=== PATIENT | male | born 1990 | race Caucasian/White ===

== ENCOUNTER 2018-05-07 18:28 | Emergency (ER) | payer SELFPAY ==
[2018-05-07 18:41] VITALS: BP 115/67
--- NOTE | 2018-05-07 18:48 | UC ---
Skin Complaint HPI - HPI Summary HPI Summary: 27 yo male presents with right elbow pain and swelling that started 2-3 days ago. He tells me that he thinks he was bit or stung by a bug on his elbow. Was a little red, swollen, and tender. This morning he tried to squeeze it and drain fluid from the puncture site - throughout the course of today has increased in swelling and redness. Denies fever, chills, SOB, chest pain, n/v. - History of Current Complaint Chief Complaint: UCSkin Time Seen by Provider: 05/07/18 18:48 Stated Complaint: BUG BITE ELBOW Hx Obtained From: Patient Onset/Duration: Gradual Onset Onset Severity: Mild Current Severity: Moderate Pain Intensity: 5 Pain Scale Used: 0-10 Numeric - Allergy/Home Medications Allergies/Adverse Reactions: Allergies Allergy/AdvReac Type Severity Reaction Status Date / Time Penicillins Allergy Unknown Verified 05/07/18 18:41 Reaction Details Review of Systems Constitutional: Negative Skin: Other - Red swollen right elbow Respiratory: Negative Cardiovascular: Negative Gastrointestinal: Negative Neurovascular: Negative Musculoskeletal: Other: - Right swollen right elbow Neurological: Negative Psychological: Negative All Other Systems Reviewed And Are Negative: Yes PMH/Surg Hx/FS Hx/Imm Hx - Additional Past Medical History Additional PMH: None Previously Healthy: Yes - Surgical History Surgical History: Yes Surgery Procedure, Year, and Place: front teeth implanted - Family History Known Family History: Positive: None - Social History Lives: With Family Alcohol Use: None Substance Use Type: None Smoking Status (MU): Never Smoked Tobacco Physical Exam - Summary Physical Exam Summary: GENERAL: NAD. WDWN. No pain distress. SKIN: Moderate erythema and edema about right elbow extending down to the proximal 1/3 of the right forearm. Mild TTP. Mild warmth. At the right elbow there is 1mm puncture wound consistent with possible insect sting/bite. No active drainage. No streaking. NECK: Supple. Nontender. No lymphadenopathy. CHEST: No accessory muscle use. Breathing comfortably and in no distress. CV: RRR. Without m/r/g. Pulses intact radial and ulnar. MSK: Right elbow: Mild TTP. Mild decreased flexion due to edema. 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 NEURO: Alert. Sensations intact hand and all fingers. PSYCH: Age appropriate behavior. Triage Information Reviewed: Yes Vital Signs: Initial Vital Signs Temp 99.8 F 05/07/18 18:38 Pulse 65 05/07/18 18:38 Resp 18 05/07/18 18:38 BP 115/67 05/07/18 18:38 Pulse Ox 100 05/07/18 18:38 Course/Dx - Course Course Of Treatment: Scant purulent matter was able to be expressed from the puncture site at the right elbow and a culture was obtained. The pt was given 1gm of ceftriaxone in the clinic and sent with an rx for Bactrim. I advised him that he needs close follow up as I suspect this is cellulitis vs abscess vs septic bursitis - therefore I am referring him to Orthopedics with instructions to call first thing Thursday morning for an appointment. If pain, swelling, or redness increased to return to UC or go to ED and do not wait. - Diagnoses Provider Diagnoses: Cellulitis right elbow. Insect bite/sting right elbow Discharge - Sign-Out/Discharge Documenting (check all that apply): Discharge/Admit/Transfer - Discharge Plan Condition: Stable Disposition: HOME Prescriptions: Sulfamethox/Trimethoprim DS* [Bactrim DS 800/160 TAB*] 1 tab PO BID #20 tab Patient Education Materials: Cellulitis (DC), Elbow Bursitis (ED) Referrals: No Primary Care Phys,NOPCP [Primary Care Provider] - Luis Armando Em MD [Medical Doctor] - As Soon As Possible Additional Instructions: If you develop a fever, shortness of breath, chest pain, new or worsening symptoms - please call your PCP or go to the ED. 1) If you notice increase pain, swelling, or redness - please return or go to the ER 2) Please call Orthopedics at the number below as soon as possible to schedule a follow up visit. - Billing Disposition and Condition Condition: STABLE Disposition: Home
[2018-05-07] MEDS ORDERED: Lidocaine 1% MPF* 2 ML VIAL INJ ONE (19:02)
[2018-05-07] MEDS ORDERED: cefTRIAXone VIAL(*) 1,000 MG VIAL IM ONE (19:02)
[2018-05-07] MEDS ORDERED: Lidocaine 1%* 5 ML VIAL INJ ONE (19:07)
--- NOTE | 2018-05-09 08:18 | UC ---
- Progress Note Progress Note: Progress note: Patient seen here 2 days ago with cellulitis of the elbow. It started on Septra. Culture results return positive for MRSA and staph aureus. Although the patient is on the appropriate antibiotic, please call to double check that he is improving and that he will follow-up with orthopedics. Kenny Zavala M.D. Discharge - Sign-Out/Discharge Documenting (check all that apply): Post-Discharge Follow Up - Discharge Plan Condition: Stable Disposition: HOME Prescriptions: Sulfamethox/Trimethoprim DS* [Bactrim DS 800/160 TAB*] 1 tab PO BID #20 tab Patient Education Materials: Cellulitis (DC), Elbow Bursitis (ED) Referrals: Luis Armando Em MD [Medical Doctor] - As Soon As Possible No Primary Care Phys,NOPCP [Primary Care Provider] - Additional Instructions: If you develop a fever, shortness of breath, chest pain, new or worsening symptoms - please call your PCP or go to the ED. 1) If you notice increase pain, swelling, or redness - please return or go to the ER 2) Please call Orthopedics at the number below as soon as possible to schedule a follow up visit. - Billing Disposition and Condition Condition: STABLE Disposition: Home
== END 2018-05-07 19:41 | disposition home or self-care (01) ==
LOC: UCEAST 18:28
DX: L03.113 Cellulitis of right upper limb (principal); B95.62 Methicillin resistant Staphylococcus aureus infection as the cause of diseases classified elsewhere; Z88.0 Allergy status to penicillin
CPT/HCPCS: 87070; 87077; 87186; 87205; 87640; 87641; 96372; 99202; G0463; J0696

== ENCOUNTER 2018-05-08 09:40 | Inpatient (IN) | payer SELFPAY ==
[2018-05-08] MEDS ORDERED: Clindamycin 600 MG IVPREMIX(* 600 MG/50 ML SDV IV ONE (10:27)
[2018-05-08 10:49] LABS: ABS Basophils 0.1 10^3/ul (0-0.2); ABS Eosinophils 0.3 10^3/ul (0-0.6); ABS Lymphocytes 1.8 10^3/ul (1.0-4.8); ABS Monocytes 1.5 10^3/ul (0-0.8); ABS Neutrophils 8.3 10^3/ul (1.5-7.7); ABS Nucleated RBC 0 10^3/ul; Eosinophil % 2.4 % (0-6); Hematocrit 44 % (42-52); Hemoglobin 15.2 g/dl (14.0-18.0); Lymphocyte % 15.3 % (25-47); Mean Corpuscular HGB Conc 34 g/dl (31-36); Mean Corpuscular Hemoglobin 32 pg (27-31); Mean Corpuscular Volume 92 fL (80-94); Mean Platelet Volume 6.8 um3 (7.4-10.4); Nucleated Red Blood Cells % 0; Platelet Count 257 10^3/ul (150-450); Red Blood Count 4.79 10^6/ul (4.0-5.4); Red Cell Distribution Width 12 % (10.5-15)
[2018-05-08 10:58] LABS: INR 1.02 (0.77-1.02)
[2018-05-08 11:06] LABS: EGFR Non-African American 88.3 (>60)
--- NOTE | 2018-05-08 12:02 | RAD ---
INDICATION: Pain and erythema around the right elbow x2 days without a history of trauma COMPARISON: None. TECHNIQUE: 4 views right elbow. REPORT: There is appearance of subcutaneous infiltration overlying the skin posterior to the distal humerus depicted best on the lateral view images. A similar appearance is seen along the medial margin of the subcutaneous tissue overlying the distal right humerus. The visualized bones of the right elbow are well corticated and properly aligned. There is no radiographically apparent fracture or dislocation. There is no radiographic evidence of pathologic joint effusion. IMPRESSION: Radiographic appearance is consistent with infiltration of the subcutaneous tissue without underlying bony abnormality or elbow joint effusion.
--- NOTE | 2018-05-08 12:30 | ED ---
Juanita Marion Julia, scribed for Talat Patterson MD on 05/08/18 at 1025 . Upper Extremity Pain - HPI Summary HPI Summary: This patient is a 27 year old M presenting to [facility] with a chief complaint of worsening swelling, pain and erythema of the right elbow beginning two days ago. Patient reports significant worsening yesterday when he was seen at and given a Rocephin IM and a prescription for Bactrim. Symptoms worsened last night with unmeasured fever and chills. Current pain is 6/10. - History of Current Complaint Chief Complaint: EDExtremityUpper Stated Complaint: RT ELBOW SWELLING Time Seen by Provider: 05/08/18 10:19 Hx Obtained From: Patient Mechanism Of Injury: Unknown Onset/Duration: Started Days Ago, Worse Since - yesterday Severity Initially: Mild Severity Currently: Moderate Pain Location: Elbow - right Aggravating Factor(s): Movement Alleviating Factor(s): Nothing Associated Signs & Symptoms: Positive: Swelling, Redness, Fever - Allergies/Home Medications Allergies/Adverse Reactions: Allergies Allergy/AdvReac Type Severity Reaction Status Date / Time Penicillins Allergy Unknown Verified 05/07/18 18:41 Reaction Details PMH/Surg Hx/FS Hx/Imm Hx Cardiovascular History: Denies: Hx Hypertension Respiratory History: Denies: Hx Chronic Obstructive Pulmonary Disease (COPD) History: Denies: Hx Acute Renal Failure - Surgical History Surgery Procedure, Year, and Place: front teeth implanted Infectious Disease History: No Infectious Disease History: Denies: Traveled Outside the [place] in Last 30 Days - Family History Known Family History: Positive: Hypertension - Social History Alcohol Use: None Substance Use Type: Reports: None Smoking Status (MU): Never Smoked Tobacco Review of Systems Positive: Myalgia, Decreased ROM, Edema Positive: Other - erythema All Other Systems Reviewed And Are Negative: Yes Physical Exam - Summary Physical Exam Summary: VITAL SIGNS: Reviewed. GENERAL: Patient is a well-developed and nourished male who is lying comfortable in the stretcher. Patient is not in any acute respiratory distress. HEAD AND FACE: No signs of trauma. No ecchymosis, hematomas or skull depressions. No sinus tenderness. EYES: PERRLA, EOMI x 2, No injected conjunctiva, no nystagmus. EARS: Hearing grossly intact. Ear canals and tympanic membranes are within normal limits. MOUTH: Oropharynx within normal limits. NECK: Supple, trachea is midline, no adenopathy, no JVD, no carotid bruit, no c- spine tenderness, neck with full ROM. CHEST: Symmetric, no tenderness at palpation LUNGS: Clear to auscultation bilaterally. No wheezing or crackles. CVS: Regular rate and rhythm, S1 and S2 present, no murmurs or gallops appreciated. ABDOMEN: Soft, non-tender. No signs of distention. No rebound no guarding, and no masses palpated. Bowel sounds are normal. EXTREMITIES: no cyanosis or clubbing. R elbow swelling and erythema with decreased ROM and tenderness. Elbow appears more indurated than abscess at this point NEURO: Alert and oriented x 3. No acute neurological deficits. Speech is normal and follows commands. SKIN: Dry and warm Triage Information Reviewed: Yes Vital Signs On Initial Exam: Initial Vitals Temp Pulse Resp BP Pulse Ox 97.7 F 85 16 119/65 100 05/08/18 09:49 05/08/18 09:49 05/08/18 09:49 05/08/18 09:49 05/08/18 09:49 Vital Signs Reviewed: Yes Diagnostics - Vital Signs Vital Signs Temp Pulse Resp BP Pulse Ox 05/08/18 09:49 97.7 F 85 16 119/65 100 - Laboratory Lab Results: Lab Results 05/08/18 05/08/18 05/08/18 Range/Units 10:40 10:40 10:40 WBC 12.0 H (3.5-10.8) 10^3/ul RBC 4.79 (4.0-5.4) 10^6/ul Hgb 15.2 (14.0-18.0) g/dl Hct 44 (42-52) % MCV 92 (80-94) fL MCH 32 H (27-31) pg MCHC 34 (31-36) g/dl RDW 12 (10.5-15) % Plt Count 257 (150-450) 10^3/ul MPV 6.8 L (7.4-10.4) um3 Neut % (Auto) 69.4 (38-83) % Lymph % (Auto) 15.3 L (25-47) % Pinal % (Auto) 12.3 H (0-7) % Eos % (Auto) 2.4 (0-6) % Baso % (Auto) 0.6 (0-2) % Absolute Neuts (auto) 8.3 H (1.5-7.7) 10^3/ul Absolute Lymphs (auto) 1.8 (1.0-4.8) 10^3/ul Absolute Monos (auto) 1.5 H (0-0.8) 10^3/ul Absolute Eos (auto) 0.3 (0-0.6) 10^3/ul Absolute Basos (auto) 0.1 (0-0.2) 10^3/ul Absolute Nucleated RBC 0 10^3/ul Nucleated RBC % 0 ESR 21 H (0-14) mm/Hr INR (Anticoag Therapy) 1.02 (0.77-1.02) APTT 32.3 (26.0-36.3) seconds Sodium 139 (139-145) mmol/L Potassium 4.1 (3.5-5.0) mmol/L Chloride 103 (101-111) mmol/L Carbon Dioxide 31 (22-32) mmol/L Anion Gap 5 (2-11) mmol/L BUN 13 (6-24) mg/dL Creatinine 1.02 (0.67-1.17) mg/dL Est GFR ( Amer) 113.5 (>60) Est GFR (Non-Af Amer) 88.3 (>60) BUN/Creatinine Ratio 12.7 (8-20) Glucose 93 (70-100) mg/dL Lactic Acid (0.5-2.0) mmol/L Calcium 9.7 (8.6-10.3) mg/dL Total Bilirubin 0.90 (0.2-1.0) mg/dL AST 23 (13-39) U/L ALT 15 (7-52) U/L Alkaline Phosphatase 61 (34-104) U/L C-Reactive Protein 31.15 H (< 5.00) mg/L Total Protein 7.6 (6.4-8.9) g/dL Albumin 4.4 (3.2-5.2) g/dL Globulin 3.2 (2-4) g/dL Albumin/Globulin Ratio 1.4 (1-3) /08/17 Range/Units 10:40 WBC (3.5-10.8) 10^3/ul RBC (4.0-5.4) 10^6/ul Hgb (14.0-18.0) g/dl Hct (42-52) % MCV (80-94) fL MCH (27-31) pg MCHC (31-36) g/dl RDW (10.5-15) % Plt Count (150-450) 10^3/ul MPV (7.4-10.4) um3 Neut % (Auto) (38-83) % Lymph % (Auto) (25-47) % Pinal % (Auto) (0-7) % Eos % (Auto) (0-6) % Baso % (Auto) (0-2) % Absolute Neuts (auto) (1.5-7.7) 10^3/ul Absolute Lymphs (auto) (1.0-4.8) 10^3/ul Absolute Monos (auto) (0-0.8) 10^3/ul Absolute Eos (auto) (0-0.6) 10^3/ul Absolute Basos (auto) (0-0.2) 10^3/ul Absolute Nucleated RBC 10^3/ul Nucleated RBC % ESR (0-14) mm/Hr INR (Anticoag Therapy) (0.77-1.02) APTT (26.0-36.3) seconds Sodium (139-145) mmol/L Potassium (3.5-5.0) mmol/L Chloride (101-111) mmol/L Carbon Dioxide (22-32) mmol/L Anion Gap (2-11) mmol/L BUN (6-24) mg/dL Creatinine (0.67-1.17) mg/dL Est GFR ( Amer) (>60) Est GFR (Non-Af Amer) (>60) BUN/Creatinine Ratio (8-20) Glucose (70-100) mg/dL Lactic Acid 0.7 (0.5-2.0) mmol/L Calcium (8.6-10.3) mg/dL Total Bilirubin (0.2-1.0) mg/dL AST (13-39) U/L ALT (7-52) U/L Alkaline Phosphatase (34-104) U/L C-Reactive Protein (< 5.00) mg/L Total Protein (6.4-8.9) g/dL Albumin (3.2-5.2) g/dL Globulin (2-4) g/dL Albumin/Globulin Ratio (1-3) Result Diagrams: 05/08/18 10:40 05/08/18 10:40 Lab Statement: Any lab studies that have been ordered have been reviewed, and results considered in the medical decision making process. - Radiology R Elbow XR Radiology Interpretation Completed By: Radiologist - Radiographic appearance is consistent with infiltration of the subcutaneous tissue without underlying bony abnormality or elbow joint effusion. ED Physician has reviewed this report. Course/Dx - Course Assessment/Plan: Blood test result shows a white blood cell count of 12 without any bandemia. CRP is 31.15. X-ray of the right elbow impression: Radiographic advances consistent with infiltration of the subcutaneous tissue without underlying bony abnormality or abnormal joint effusion. The patient reports that he is allergic to penicillin and therefore the patient will be replaced and clindamycin. I discuss my physical exam, findings and test results with Dr. Alcala from the hospitalist services and he agrees to admit patient to his services. Patient is hemodynamically stable alert and oriented x 3. - Diagnoses Differential Diagnosis/HQI/PQRI: Positive: Arthritis, Bursitis, Fracture (Closed ), Strain, Sprain, Other - Cellulitis Provider Diagnoses: Cellulitis Discharge - Sign-Out/Discharge Documenting (check all that apply): Discharge/Admit/Transfer - Discharge Plan Condition: Stable Disposition: ADMITTED TO [facility] Referrals: No Primary Care Phys,NOPCP [Primary Care Provider] - - Billing Disposition and Condition Condition: STABLE Disposition: Admitted to [facility] The documentation as recorded by the Juanita mayberry Julia accurately reflects the service I personally performed and the decisions made by me, Talat Patterson MD.
[2018-05-08] MEDS ORDERED: Vancomycin(*) 2,000 MG in NS 0.9% 500 ML* 500 ML IVPB ONE (12:47)
[2018-05-08] MEDS ORDERED: Iohexol 300* (CONTRAST) 10 ML SDV IV SCH (12:59)
[2018-05-08] MEDS ORDERED: Vancomycin per Pharmacy* NOTE FOLLOW UP SCH (13:00)
--- NOTE | 2018-05-08 13:48 | RAD ---
INDICATION: Right elbow cellulitis COMPARISON: Same day right ankle radiograph. TECHNIQUE: Noncontrast CT examination of the 100 mL Omnipaque 300. Axial images were acquired and sagittal and coronal reformats were created and independently analyzed. FINDINGS: Patient positioning limits the diagnostic quality of the images. There is infiltration of the subcutaneous tissue overlying the distal left humerus, elbow and proximal left forearm. There is no drainable fluid collection. There is no pathologic fluid collection in the right elbow. IMPRESSION: Limited quality imaging of the right elbow is most consistent with superficial cellulitis without drainable fluid collection or drainable right elbow effusion.
--- NOTE | 2018-05-08 14:13 | HP ---
HISTORY AND PHYSICAL: DATE OF ADMISSION: 05/08/18 PRIMARY CARE PROVIDER: None. ATTENDING PHYSICIAN: Dr. Va Alcala * (dictated by Aurelia Zhou , MARIELLA). CHIEF COMPLAINT: Right elbow pain and swelling. HISTORY OF PRESENT ILLNESS: Mr. Márquez is a 27-year-old male with no significant past medical history, who initially presented yesterday on 05/07 to urgent care with complaints of right elbow pain and swelling for approximately 2 days that was worse yesterday. He received IM Rocephin and was started on Bactrim. He took the first dose of Bactrim this morning. The patient reports that overnight he had subjective fevers and intermittent chills. He denies any chest pain, cough, shortness of breath, diarrhea, or abdominal pain. He feels that the swelling has increased today. He has pain with movement and palpation of the arm. Due to this, he presented to the emergency room for further evaluation. While in the emergency room, the patient was noted to have erythema of his biceps and partially down his forearm with a significant amount of swelling in his right elbow with erythema and warmth. He received a dose of IV clindamycin. He had labs that were fairly unremarkable. He had a white blood cell count of 12, an ESR of 21, and a CRP of 31. He had an elbow x-ray showing consistency with an infiltration of the subcutaneous tissue without underlying abnormalities or joint effusion, and the hospitalists were asked to evaluate the patient for admission. PAST MEDICAL HISTORY: None. PAST SURGICAL HISTORY: Front teeth implants. HOME MEDICATIONS: Bactrim DS 1 tablet oral twice daily. ALLERGIES: PENICILLIN. FAMILY HISTORY: Denies any family history of coronary artery disease, diabetes mellitus, or cancer. SOCIAL HISTORY: He denies tobacco, alcohol, or recreational drug use. His girlfriend, Olivia, will be his surrogate decision maker in the event he is unable to make decisions for himself. REVIEW OF SYSTEMS: I performed an 11-point review of systems. All the pertinent positives and negatives are mentioned in the history of present illness. The remaining review of systems are negative. PHYSICAL EXAMINATION GENERAL APPEARANCE: The patient is alert, pleasant, appears to be in no acute distress. VITAL SIGNS: Temperature 99.6, heart rate 85, respiratory rate 16, O2 sat 100% on room air, blood pressure 126/62. HEENT: Normocephalic, atraumatic. Pupils are equal and reactive to light. Extraocular movements are intact. RESPIRATORY: There is no accessory muscle use. The lungs are clear to auscultation bilaterally. CARDIOVASCULAR: Regular rate and rhythm. S1, S2 present. There are no murmurs , rubs, or gallops heard. ABDOMEN: Soft, nontender, nondistended. Bowel sounds are present x4. EXTREMITIES: There is no lower extremity edema. DP and PT pulses are 2+ and symmetric. MUSCULOSKELETAL: There is no clubbing or cyanosis noted. The patient exhibits good strength in all extremities. The patient's right elbow has full range of motion, but pain with this. He has tenderness to palpation to his elbow. He has edema to his right elbow and slight erythema extending up to his biceps and into his forearm with more significant erythema located around the elbow. NEUROLOGICAL: The patient is alert and oriented x4. Cranial nerves II through XII are grossly intact. PSYCHOLOGICAL: The patient is calm and cooperative. SKIN: The patient has erythema as described above to the right elbow in addition to a small scabbed area of eschar on the right elbow. DIAGNOSTIC STUDIES/LABORATORY DATA: Sodium 139, potassium 4.1, chloride 103, CO2 of 31, BUN 13, creatinine 1.02, glucose 93. White blood cell count 12.0, hemoglobin 15.2, hematocrit 44, platelet count 257. CRP 31, ESR 21. Elbow x-ray from today. Radiologist's impression: Radiographic appearance is consistent with infiltration of the subcu tissue without underlying bony abnormality or elbow joint effusion. IMPRESSION: Mr. Márquez is a 27-year-old male with no significant past medical history, who presents to the emergency room with complaints of 3 to 5 days of right elbow swelling and redness that has worsened. He will be admitted as an observation for right elbow cellulitis. ASSESSMENT/PLAN: 1. Right elbow cellulitis. The patient has mild leukocytosis. At this time, he is afebrile. His CRP and ESR are not significantly elevated. There is currently no drainage from the wound. I believe this was cultured at urgent care, but there are no results back yet. The patient has taken 1 dose of Bactrim after receiving IM Rocephin last evening. He has received IV clindamycin in the emergency room. I will place him on vancomycin. I do not feel this is an outpatient antibiotic failure as he has only taken 1 dose of Bactrim. He will likely be able to be discharged home back on Bactrim in the morning. I am going to get an elbow CT just to further eval for the possibility of an effusion to rule out septic arthritis. 2. Fluids, electrolytes, and nutrition: He will be n.p.o. until after his CT scan, then he can have a regular diet. 3. Code status: Full code. 4. Deep vein thrombosis prophylaxis: He is at low risk and will be encouraged to ambulate. 5. Disposition: Observation to the CDU. TIME SPENT: Time for this admission was approximately 60 minutes, greater than half of that was spent with the patient discussing medications, past medical history, events leading up to his arrival today, performing a physical examination. The case has been reviewed with the attending, Dr. Alcala, who agrees with the plan of care. Reviewed by MARIN INMAN 05/09/18 1222 [id number]/[facility] #: [id number] ABI
[2018-05-08] MEDS: Acetaminophen TAB* 325 MG PO PRN ×2 (14:27→19:33)
[2018-05-08] MEDS: oxyCODONE/Acetamin 5/325 MG* TAB PO PRN ×3 (14:27→23:35)
[2018-05-08] MEDS: Vancomycin(*) 1,000 MG in NS 0.9% 250 ML* 250 ML IVPB SCH (23:36)
[2018-05-09] MEDS: oxyCODONE/Acetamin 5/325 MG* TAB PO PRN ×2 (05:06→09:31)
[2018-05-09 06:43] LABS: ABS Basophils 0.1 10^3/ul (0-0.2); ABS Eosinophils 0.2 10^3/ul (0-0.6); ABS Lymphocytes 1.9 10^3/ul (1.0-4.8); ABS Monocytes 1.5 10^3/ul (0-0.8); ABS Neutrophils 8.2 10^3/ul (1.5-7.7); ABS Nucleated RBC 0 10^3/ul; Eosinophil % 2.1 % (0-6); Hematocrit 40 % (42-52); Hemoglobin 13.8 g/dl (14.0-18.0); Lymphocyte % 15.8 % (25-47); Mean Corpuscular HGB Conc 35 g/dl (31-36); Mean Corpuscular Hemoglobin 32 pg (27-31); Mean Corpuscular Volume 92 fL (80-94); Mean Platelet Volume 6.8 um3 (7.4-10.4); Nucleated Red Blood Cells % 0.1; Platelet Count 245 10^3/ul (150-450); Red Blood Count 4.35 10^6/ul (4.0-5.4); Red Cell Distribution Width 12 % (10.5-15); White Blood Count 11.9 10^3/ul (3.5-10.8)
[2018-05-09] MEDS: Acetaminophen TAB* 325 MG PO PRN ×3 (07:46→23:52)
[2018-05-09] MEDS: Vancomycin(*) 1,000 MG in NS 0.9% 250 ML* 250 ML IVPB SCH ×3 (07:48→23:52)
--- NOTE | 2018-05-09 10:41 | PN ---
Subjective Date of Service: 05/09/18 Interval History: Pain relieved by oxycodone/APAP only for 2 hrs. No bowel c/o. No chills. Objective Active Medications: Acetaminophen (Tylenol Tab*) 650 mg PO Q4H PRN PRN Reason: FEVER/PAIN Last Admin: 05/09/18 07:46 Dose: 650 mg Vancomycin HCl 1,000 mg/ (Sodium Chloride) 250 mls @ 166.667 mls/hr IVPB Q8H MADAN Last Admin: 05/09/18 07:48 Dose: 166.667 mls/hr Iohexol (Omnipaque 300* (Contrast)) 100 ml IV ONCE [facility] Stop: 05/10/18 12:58 Oxycodone/Acetaminophen (Percocet 5/325 Tab*) 1 tab PO Q4H PRN PRN Reason: PAIN - MODERATE TO SEVERE Last Admin: 05/09/18 09:31 Dose: 1 tab Pharmacy Consult (Vancomycin Per Pharmacy*) 1 note FOLLOW UP .VANC PER PHARMACY [facility] Pharmacy Profile Note (Vancomycin Trough Check) 1 note FOLLOW UP 0730 ONE Stop: 05/10/18 07:31 Vital Signs - 8 hr 05/09/18 05/09/18 05/09/18 02:52 04:47 05:06 Temperature 98.4 F Pulse Rate 81 Respiratory 16 16 16 Rate Blood Pressure 109/59 (mmHg) O2 Sat by Pulse 100 Oximetry 05/09/18 05/09/18 05/09/18 06:41 07:51 07:54 Temperature 98.1 F Pulse Rate 64 Respiratory 16 16 Rate Blood Pressure 104/54 (mmHg) O2 Sat by Pulse 99 99 Oximetry 05/09/18 09:31 Temperature Pulse Rate Respiratory 16 Rate Blood Pressure (mmHg) O2 Sat by Pulse Oximetry Oxygen Devices in Use Now: None Appearance: Alert, partly up in bed. In good spirits. Looks comfortable. Respiratory: Symmetrical Chest Expansion and Respiratory Effort, Clear to Auscultation, Clear to Percussion Cardiovascular: NL Sounds; No Murmurs; No JVD, RRR, No Edema, - Skin: - - R arm swollen, warm, tender. Erythema extends 1-2 inches proximal to inked line on upper arm, to the other inked borders also. Eschar on elbow with no fluctuance or drainage. Result Diagrams: 05/09/18 06:24 05/08/18 10:40 Additional Lab and Data: Lab Results 05/08/18 05/08/18 05/08/18 Range/Units 10:40 10:40 10:40 WBC 12.0 H (3.5-10.8) 10^3/ul RBC 4.79 (4.0-5.4) 10^6/ul Hgb 15.2 (14.0-18.0) g/dl Hct 44 (42-52) % MCV 92 (80-94) fL MCH 32 H (27-31) pg MCHC 34 (31-36) g/dl RDW 12 (10.5-15) % Plt Count 257 (150-450) 10^3/ul MPV 6.8 L (7.4-10.4) um3 Neut % (Auto) 69.4 (38-83) % Lymph % (Auto) 15.3 L (25-47) % [place] % (Auto) 12.3 H (0-7) % Eos % (Auto) 2.4 (0-6) % Baso % (Auto) 0.6 (0-2) % Absolute Neuts (auto) 8.3 H (1.5-7.7) 10^3/ul Absolute Lymphs (auto) 1.8 (1.0-4.8) 10^3/ul Absolute Monos (auto) 1.5 H (0-0.8) 10^3/ul Absolute Eos (auto) 0.3 (0-0.6) 10^3/ul Absolute Basos (auto) 0.1 (0-0.2) 10^3/ul Absolute Nucleated RBC 0 10^3/ul Nucleated RBC % 0 ESR 21 H (0-14) mm/Hr INR (Anticoag Therapy) 1.02 (0.77-1.02) APTT 32.3 (26.0-36.3) seconds Sodium 139 (139-145) mmol/L Potassium 4.1 (3.5-5.0) mmol/L Chloride 103 (101-111) mmol/L Carbon Dioxide 31 (22-32) mmol/L Anion Gap 5 (2-11) mmol/L BUN 13 (6-24) mg/dL Creatinine 1.02 (0.67-1.17) mg/dL Est GFR ( Amer) 113.5 (>60) Est GFR (Non-Af Amer) 88.3 (>60) BUN/Creatinine Ratio 12.7 (8-20) Glucose 93 (70-100) mg/dL Lactic Acid (0.5-2.0) mmol/L Calcium 9.7 (8.6-10.3) mg/dL Total Bilirubin 0.90 (0.2-1.0) mg/dL AST 23 (13-39) U/L ALT 15 (7-52) U/L Alkaline Phosphatase 61 (34-104) U/L C-Reactive Protein 31.15 H (< 5.00) mg/L Total Protein 7.6 (6.4-8.9) g/dL Albumin 4.4 (3.2-5.2) g/dL Globulin 3.2 (2-4) g/dL Albumin/Globulin Ratio 1.4 (1-3) /08/17 Range/Units 10:40 WBC (3.5-10.8) 10^3/ul RBC (4.0-5.4) 10^6/ul Hgb (14.0-18.0) g/dl Hct (42-52) % MCV (80-94) fL MCH (27-31) pg MCHC (31-36) g/dl RDW (10.5-15) % Plt Count (150-450) 10^3/ul MPV (7.4-10.4) um3 Neut % (Auto) (38-83) % Lymph % (Auto) (25-47) % [place]w % (Auto) (0-7) % Eos % (Auto) (0-6) % Baso % (Auto) (0-2) % Absolute Neuts (auto) (1.5-7.7) 10^3/ul Absolute Lymphs (auto) (1.0-4.8) 10^3/ul Absolute Monos (auto) (0-0.8) 10^3/ul Absolute Eos (auto) (0-0.6) 10^3/ul Absolute Basos (auto) (0-0.2) 10^3/ul Absolute Nucleated RBC 10^3/ul Nucleated RBC % ESR (0-14) mm/Hr INR (Anticoag Therapy) (0.77-1.02) APTT (26.0-36.3) seconds Sodium (139-145) mmol/L Potassium (3.5-5.0) mmol/L Chloride (101-111) mmol/L Carbon Dioxide (22-32) mmol/L Anion Gap (2-11) mmol/L BUN (6-24) mg/dL Creatinine (0.67-1.17) mg/dL Est GFR ( Amer) (>60) Est GFR (Non-Af Amer) (>60) BUN/Creatinine Ratio (8-20) Glucose (70-100) mg/dL Lactic Acid 0.7 (0.5-2.0) mmol/L Calcium (8.6-10.3) mg/dL Total Bilirubin (0.2-1.0) mg/dL AST (13-39) U/L ALT (7-52) U/L Alkaline Phosphatase (34-104) U/L C-Reactive Protein (< 5.00) mg/L Total Protein (6.4-8.9) g/dL Albumin (3.2-5.2) g/dL Globulin (2-4) g/dL Albumin/Globulin Ratio (1-3) Assess/Plan/Problems-Billing Assessment: - Patient Problems (1) Infection of skin due to methicillin resistant Staphylococcus aureus (MRSA) Current Visit: Yes Status: Acute Code(s): A49.02 - METHICILLIN RESIS STAPH INFECTION, UNSP SITE SNOMED Code(s): 299057242 Comment: Continue vancomycin. He only took 1 dose of Bactrim at home AM 05/08 , had an IM dose of some antibiotic in convenient care about 24 hrs before this admission. Change to plain oxycodone with shorter prn interval.
[2018-05-09] MEDS: oxyCODONE TAB* 5 MG TAB PO PRN ×5 (12:26→22:04)
[2018-05-10] MEDS: oxyCODONE TAB* 5 MG TAB PO PRN ×8 (00:07→23:26)
[2018-05-10] MEDS ORDERED: Vancomycin Trough Check NOTE FOLLOW UP ONE (07:30)
[2018-05-10 08:13] LABS: EGFR Non-African American 86.3 (>60)
[2018-05-10 08:26] LABS: Vancomycin Trough 12.2 mcg/mL
[2018-05-10] MEDS: Vancomycin(*) 1,000 MG in NS 0.9% 250 ML* 250 ML IVPB SCH ×3 (08:36→23:30)
[2018-05-10] MEDS: Acetaminophen TAB* 325 MG PO PRN ×2 (13:11→19:24)
--- NOTE | 2018-05-10 16:00 | PN ---
Subjective Date of Service: 05/10/18 Interval History: Pt is feeling ok. He continues to have pain in both elbows but states the L elbow pain is the worst. The pain in the L elbow is at an IV site. There has not been any spontaneous drainage from the R elbow. Objective Active Medications: Acetaminophen (Tylenol Tab*) 650 mg PO Q4H PRN PRN Reason: FEVER/PAIN Last Admin: 05/10/18 13:11 Dose: 650 mg Vancomycin HCl 1,000 mg/ (Sodium Chloride) 250 mls @ 166.667 mls/hr IVPB Q8H MADAN Last Admin: 05/10/18 08:36 Dose: 166.667 mls/hr Oxycodone HCl (Roxycodone Tab*) 5 mg PO Q2H PRN PRN Reason: PAIN Last Admin: 05/10/18 14:39 Dose: 5 mg Pharmacy Consult (Vancomycin Per Pharmacy*) 1 note FOLLOW UP .VANC PER [facility]ACY [facility] Vital Signs - 8 hr 05/10/18 05/10/18 05/10/18 07:58 08:00 10:15 Temperature Pulse Rate Respiratory 16 16 Rate Blood Pressure (mmHg) O2 Sat by Pulse 98 Oximetry 05/10/18 05/10/18 05/10/18 11:19 11:58 14:39 Temperature 99.6 F Pulse Rate 72 Respiratory 18 16 16 Rate Blood Pressure 107/59 (mmHg) O2 Sat by Pulse 99 Oximetry 05/10/18 14:42 Temperature Pulse Rate Respiratory 16 Rate Blood Pressure (mmHg) O2 Sat by Pulse Oximetry Oxygen Devices in Use Now: None Appearance: Young thin male sitting up in bed, NAD Eyes: No Scleral Icterus Ears/Nose/Mouth/Throat: Mucous Membranes Moist Respiratory: Symmetrical Chest Expansion and Respiratory Effort, Clear to Auscultation Cardiovascular: NL Sounds; No Murmurs; No JVD, RRR, No Edema Abdominal: NL Sounds; No Tenderness; No Distention Extremities: No Clubbing, Cyanosis Skin: No Nodules or Sclerosis, - - significant erythema around R elbow ( olecranon process) with henny sized area that appears to be pus filled-small scabbed over lesion in the center of this, large area of fluctuation surrounding the pus filled area. Just medial to the L antecubital fossa is erythema which is quite tender to palpation Neurological: Alert and Oriented x 3 Result Diagrams: 05/09/18 06:24 05/10/18 07:46 Additional Lab and Data: Lab Results 05/08/18 05/08/18 05/08/18 Range/Units 10:40 10:40 10:40 WBC 12.0 H (3.5-10.8) 10^3/ul RBC 4.79 (4.0-5.4) 10^6/ul Hgb 15.2 (14.0-18.0) g/dl Hct 44 (42-52) % MCV 92 (80-94) fL MCH 32 H (27-31) pg MCHC 34 (31-36) g/dl RDW 12 (10.5-15) % Plt Count 257 (150-450) 10^3/ul MPV 6.8 L (7.4-10.4) um3 Neut % (Auto) 69.4 (38-83) % Lymph % (Auto) 15.3 L (25-47) % [place] % (Auto) 12.3 H (0-7) % Eos % (Auto) 2.4 (0-6) % Baso % (Auto) 0.6 (0-2) % Absolute Neuts (auto) 8.3 H (1.5-7.7) 10^3/ul Absolute Lymphs (auto) 1.8 (1.0-4.8) 10^3/ul Absolute Monos (auto) 1.5 H (0-0.8) 10^3/ul Absolute Eos (auto) 0.3 (0-0.6) 10^3/ul Absolute Basos (auto) 0.1 (0-0.2) 10^3/ul Absolute Nucleated RBC 0 10^3/ul Nucleated RBC % 0 ESR 21 H (0-14) mm/Hr INR (Anticoag Therapy) 1.02 (0.77-1.02) APTT 32.3 (26.0-36.3) seconds Sodium 139 (139-145) mmol/L Potassium 4.1 (3.5-5.0) mmol/L Chloride 103 (101-111) mmol/L Carbon Dioxide 31 (22-32) mmol/L Anion Gap 5 (2-11) mmol/L BUN 13 (6-24) mg/dL Creatinine 1.02 (0.67-1.17) mg/dL Est GFR ( Amer) 113.5 (>60) Est GFR (Non-Af Amer) 88.3 (>60) BUN/Creatinine Ratio 12.7 (8-20) Glucose 93 (70-100) mg/dL Lactic Acid (0.5-2.0) mmol/L Calcium 9.7 (8.6-10.3) mg/dL Total Bilirubin 0.90 (0.2-1.0) mg/dL AST 23 (13-39) U/L ALT 15 (7-52) U/L Alkaline Phosphatase 61 (34-104) U/L C-Reactive Protein 31.15 H (< 5.00) mg/L Total Protein 7.6 (6.4-8.9) g/dL Albumin 4.4 (3.2-5.2) g/dL Globulin 3.2 (2-4) g/dL Albumin/Globulin Ratio 1.4 (1-3) 05/08/18 Range/Units 10:40 WBC (3.5-10.8) 10^3/ul RBC (4.0-5.4) 10^6/ul Hgb (14.0-18.0) g/dl Hct (42-52) % MCV (80-94) fL MCH (27-31) pg MCHC (31-36) g/dl RDW (10.5-15) % Plt Count (150-450) 10^3/ul MPV (7.4-10.4) um3 Neut % (Auto) (38-83) % Lymph % (Auto) (25-47) % [place] % (Auto) (0-7) % Eos % (Auto) (0-6) % Baso % (Auto) (0-2) % Absolute Neuts (auto) (1.5-7.7) 10^3/ul Absolute Lymphs (auto) (1.0-4.8) 10^3/ul Absolute Monos (auto) (0-0.8) 10^3/ul Absolute Eos (auto) (0-0.6) 10^3/ul Absolute Basos (auto) (0-0.2) 10^3/ul Absolute Nucleated RBC 10^3/ul Nucleated RBC % ESR (0-14) mm/Hr INR (Anticoag Therapy) (0.77-1.02) APTT (26.0-36.3) seconds Sodium (139-145) mmol/L Potassium (3.5-5.0) mmol/L Chloride (101-111) mmol/L Carbon Dioxide (22-32) mmol/L Anion Gap (2-11) mmol/L BUN (6-24) mg/dL Creatinine (0.67-1.17) mg/dL Est GFR ( Amer) (>60) Est GFR (Non-Af Amer) (>60) BUN/Creatinine Ratio (8-20) Glucose (70-100) mg/dL Lactic Acid 0.7 (0.5-2.0) mmol/L Calcium (8.6-10.3) mg/dL Total Bilirubin (0.2-1.0) mg/dL AST (13-39) U/L ALT (7-52) U/L Alkaline Phosphatase (34-104) U/L C-Reactive Protein (< 5.00) mg/L Total Protein (6.4-8.9) g/dL Albumin (3.2-5.2) g/dL Globulin (2-4) g/dL Albumin/Globulin Ratio (1-3) Assess/Plan/Problems-Billing Mr Márquez is a 27 yo M who has no significant PMHx who presented initially to with c/o R elbow swelling, pain and redness and was diagnosed with cellulitis of the elbow, he represented to the ER with persistent symptoms. - Patient Problems (1) Infection of skin due to methicillin resistant Staphylococcus aureus (MRSA) Current Visit: Yes Status: Acute Code(s): A49.02 - METHICILLIN RESIS STAPH INFECTION, UNSP SITE SNOMED Code(s): 116121704 Comment: The erythema that was once up the biceps and down the forearm has essentially resolved. There is now focal erythema and fluctuance overlying the olecranon. Will get orthopedics consult for possible septic bursitis. For now continue vancomycin for MRSA that grew from culture from urgent care. (2) DVT prophylaxis Current Visit: Yes Status: Acute Code(s): BWQ1642 - SNOMED Code(s): 694306290 Comment: ambulation (3) Full code status Current Visit: Yes Status: Acute Code(s): Z78.9 - OTHER SPECIFIED HEALTH STATUS SNOMED Code(s): 466535421
[2018-05-11] MEDS: oxyCODONE TAB* 5 MG TAB PO PRN ×2 (07:20→09:39)
[2018-05-11] MEDS: Vancomycin(*) 1,000 MG in NS 0.9% 250 ML* 250 ML IVPB SCH (07:20)
[2018-05-11 08:06] VITALS: BP 106/58
--- NOTE | 2018-05-11 08:51 | PN ---
Subjective Date of Service: 05/11/18 Interval History: Pt is feeling ok. His R elbow is quite sore but he states it was because he did not get pain medication for a while after Dr. Byrd expressed pus from the bursa. His L elbow is also quite sore at this time (IV has been removed). Objective Active Medications: Acetaminophen (Tylenol Tab*) 650 mg PO Q4H PRN PRN Reason: FEVER/PAIN Last Admin: 05/10/18 19:24 Dose: 650 mg Vancomycin HCl 1,000 mg/ (Sodium Chloride) 250 mls @ 166.667 mls/hr IVPB Q8H MADAN Last Admin: 05/11/18 07:20 Dose: 166.667 mls/hr Oxycodone HCl (Roxycodone Tab*) 10 mg PO Q4H PRN PRN Reason: pain 6-10 Last Admin: 05/11/18 07:20 Dose: 10 mg Oxycodone HCl (Roxycodone Tab*) 5 mg PO Q4H PRN PRN Reason: Pain 1-5 Last Admin: 05/10/18 19:23 Dose: 5 mg Pharmacy Consult (Vancomycin Per Pharmacy*) 1 note FOLLOW UP .VANC [facility] Vital Signs - 8 hr 05/11/18 05/11/18 05/11/18 02:22 03:25 07:20 Temperature 98.2 F Pulse Rate 56 Respiratory 15 16 16 Rate Blood Pressure 115/65 (mmHg) O2 Sat by Pulse 98 Oximetry 05/11/18 05/11/18 07:30 08:00 Temperature 98.2 F Pulse Rate 54 Respiratory 16 16 Rate Blood Pressure 106/58 (mmHg) O2 Sat by Pulse 97 97 Oximetry Oxygen Devices in Use Now: None Appearance: Young male sitting up in bed, NAD Eyes: No Scleral Icterus Ears/Nose/Mouth/Throat: Mucous Membranes Moist Respiratory: Symmetrical Chest Expansion and Respiratory Effort, Clear to Auscultation Cardiovascular: NL Sounds; No Murmurs; No JVD, RRR, No Edema Abdominal: NL Sounds; No Tenderness; No Distention Extremities: No Clubbing, Cyanosis Skin: - - R elbow dressing not removed at this time, still mild erythema and swelling of L medial antecubital fossa Neurological: Alert and Oriented x 3 Result Diagrams: 05/09/18 06:24 05/10/18 07:46 Additional Lab and Data: Lab Results 05/08/18 05/08/18 05/08/18 Range/Units 10:40 10:40 10:40 WBC 12.0 H (3.5-10.8) 10^3/ul RBC 4.79 (4.0-5.4) 10^6/ul Hgb 15.2 (14.0-18.0) g/dl Hct 44 (42-52) % MCV 92 (80-94) fL MCH 32 H (27-31) pg MCHC 34 (31-36) g/dl RDW 12 (10.5-15) % Plt Count 257 (150-450) 10^3/ul MPV 6.8 L (7.4-10.4) um3 Neut % (Auto) 69.4 (38-83) % Lymph % (Auto) 15.3 L (25-47) % [place] % (Auto) 12.3 H (0-7) % Eos % (Auto) 2.4 (0-6) % Baso % (Auto) 0.6 (0-2) % Absolute Neuts (auto) 8.3 H (1.5-7.7) 10^3/ul Absolute Lymphs (auto) 1.8 (1.0-4.8) 10^3/ul Absolute Monos (auto) 1.5 H (0-0.8) 10^3/ul Absolute Eos (auto) 0.3 (0-0.6) 10^3/ul Absolute Basos (auto) 0.1 (0-0.2) 10^3/ul Absolute Nucleated RBC 0 10^3/ul Nucleated RBC % 0 ESR 21 H (0-14) mm/Hr INR (Anticoag Therapy) 1.02 (0.77-1.02) APTT 32.3 (26.0-36.3) seconds Sodium 139 (139-145) mmol/L Potassium 4.1 (3.5-5.0) mmol/L Chloride 103 (101-111) mmol/L Carbon Dioxide 31 (22-32) mmol/L Anion Gap 5 (2-11) mmol/L BUN 13 (6-24) mg/dL Creatinine 1.02 (0.67-1.17) mg/dL Est GFR ( Amer) 113.5 (>60) Est GFR (Non-Af Amer) 88.3 (>60) BUN/Creatinine Ratio 12.7 (8-20) Glucose 93 (70-100) mg/dL Lactic Acid (0.5-2.0) mmol/L Calcium 9.7 (8.6-10.3) mg/dL Total Bilirubin 0.90 (0.2-1.0) mg/dL AST 23 (13-39) U/L ALT 15 (7-52) U/L Alkaline Phosphatase 61 (34-104) U/L C-Reactive Protein 31.15 H (< 5.00) mg/L Total Protein 7.6 (6.4-8.9) g/dL Albumin 4.4 (3.2-5.2) g/dL Globulin 3.2 (2-4) g/dL Albumin/Globulin Ratio 1.4 (1-3) /08/17 Range/Units 10:40 WBC (3.5-10.8) 10^3/ul RBC (4.0-5.4) 10^6/ul Hgb (14.0-18.0) g/dl Hct (42-52) % MCV (80-94) fL MCH (27-31) pg MCHC (31-36) g/dl RDW (10.5-15) % Plt Count (150-450) 10^3/ul MPV (7.4-10.4) um3 Neut % (Auto) (38-83) % Lymph % (Auto) (25-47) % [place] % (Auto) (0-7) % Eos % (Auto) (0-6) % Baso % (Auto) (0-2) % Absolute Neuts (auto) (1.5-7.7) 10^3/ul Absolute Lymphs (auto) (1.0-4.8) 10^3/ul Absolute Monos (auto) (0-0.8) 10^3/ul Absolute Eos (auto) (0-0.6) 10^3/ul Absolute Basos (auto) (0-0.2) 10^3/ul Absolute Nucleated RBC 10^3/ul Nucleated RBC % ESR (0-14) mm/Hr INR (Anticoag Therapy) (0.77-1.02) APTT (26.0-36.3) seconds Sodium (139-145) mmol/L Potassium (3.5-5.0) mmol/L Chloride (101-111) mmol/L Carbon Dioxide (22-32) mmol/L Anion Gap (2-11) mmol/L BUN (6-24) mg/dL Creatinine (0.67-1.17) mg/dL Est GFR ( Amer) (>60) Est GFR (Non-Af Amer) (>60) BUN/Creatinine Ratio (8-20) Glucose (70-100) mg/dL Lactic Acid 0.7 (0.5-2.0) mmol/L Calcium (8.6-10.3) mg/dL Total Bilirubin (0.2-1.0) mg/dL AST (13-39) U/L ALT (7-52) U/L Alkaline Phosphatase (34-104) U/L C-Reactive Protein (< 5.00) mg/L Total Protein (6.4-8.9) g/dL Albumin (3.2-5.2) g/dL Globulin (2-4) g/dL Albumin/Globulin Ratio (1-3) Assess/Plan/Problems-Billing Mr Márquez is a 27 yo M who has no significant PMHx who presented initially to with c/o R elbow swelling, pain and redness and was diagnosed with cellulitis of the elbow, he represented to the ER with persistent symptoms. - Patient Problems (1) Infection of skin due to methicillin resistant Staphylococcus aureus (MRSA) Current Visit: Yes Status: Acute Code(s): A49.02 - METHICILLIN RESIS STAPH INFECTION, UNSP SITE SNOMED Code(s): 311282434 Comment: Cellulitis with septic bursitis of the R elbow- Dr. Byrd saw the patient this AM and expressed pus from the bursa-no need for surgical treatment. Dr. Mcgee to consult this AM. Await recommendations from Dr. Mcgee. (2) DVT prophylaxis Current Visit: Yes Status: Acute Code(s): [id number] - SNOMED Code(s): 176513019 Comment: ambulation (3) Full code status Current Visit: Yes Status: Acute Code(s): Z78.9 - OTHER SPECIFIED HEALTH STATUS SNOMED Code(s): 337534831
--- NOTE | 2018-05-11 14:21 | CONS ---
CONSULTATION REPORT: DATE OF CONSULT: 05/11/18 REQUESTING PHYSICIAN: Dr. Mendosa. CONSULTING SERVICE: Infectious Disease. REASON FOR CONSULT: Right elbow infection. IMPRESSION: 1. Methicillin-resistant Staphylococcus aureus right olecranon bursitis, septic , improving on vancomycin and after bedside manual drainage of some fluid. 2. PENICILLIN allergy listed though he has never had penicillin. 3. Tetanus status up to date. PLAN/RECOMMENDATIONS: Bactrim double strength tablet twice a day for 21 more days, followup with me next week. He agrees to return to the emergency room if worsening elbow pain or fever, or decreased range of motion. HISTORY OF PRESENT ILLNESS: This 27-year-old man, otherwise healthy admitted with right elbow pain over the weekend. Last week he bumped his elbow at work on a shelf and then noticed some swelling. A couple of days later, it got worse and worse, was seen in urgent care, started on Bactrim, which he took but had persistence and and actually worsening of the redness and swelling, it made it hard to bend his elbow. He developed some fevers and chills. He came to the hospital on Thursday. He had a leukocytosis of 12,000. C-reactive protein was 30. He was febrile at 39 degrees. He was started on vancomycin. A culture from urgent care returned to come back positive for MRSA sensitive to Bactrim. He has been on vancomycin over the weekend and through the morning. He has had much improved in range of motion, swelling, redness and pain. He has had no fever overnight. Dr. Byrd saw him and milked some purulent fluid out of the pustule that had developed. He has noted improvement since then. He had also had a CT on 05/08/18 that showed superficial cellulitis without abscess or effusion. He has never had anything like this happen before. Denies injection drug use. PAST MEDICAL HISTORY: None. MEDICATIONS: 1. Vancomycin. 2. Oxycodone. 3. Tylenol. ALLERGIES: PENICILLIN though that was based on both parents with penicillin allergy; he has never taken it. FAMILY HISTORY: No coronary disease. Parents are healthy as far as he knows. SOCIAL HISTORY: He lives in [place]. No injection drugs. He works at [employer]. He is a nonsmoker. REVIEW OF SYSTEMS: A 14-point review of systems all negative except as noted above in the history of present illness. PHYSICAL EXAM: Vital Signs: Temperature 37, heart rate 60, respiratory rate 16 , blood pressure 106/58, oxygen saturation 97% on room air. In general, he is awake. Not in distress. Neurologic: He is oriented x3, follows all commands. HEENT: There is no conjunctival hemorrhage. Oropharynx: Without lesions. Neck : Supple without mass. Lymph Nodes: There is no cervical, supraclavicular, inguinal, axillary, or epitrochlear lymphadenopathy. Heart: Regular rate and rhythm without murmurs, rubs or gallops. Lungs: Clear to auscultation bilaterally. Abdomen: Soft. Nontender, nondistended. There are bowel sounds present. Skin: There is no rash or splinter hemorrhages. Musculoskeletal: Right elbow, there is mild diffuse edema, elbow flexion and extension, nearly full. There is no crepitus or fluctuance. There is mild warmth. DIAGNOSTIC STUDIES/LAB DATA: Creatinine 1, CRP 31. White blood cell count 12, hemoglobin 13, platelets 245. Please see impression and recommendations as outlined above, which I have discussed with Dr. Mendosa. Thank you for asking me to see Mr. Márquez in consultation. [id number]/[facility] #: [id number] [facility]ITALRobin
--- NOTE | 2018-05-11 16:33 | CONS ---
ORTHOPEDIC CONSULTATION REPORT: DATE OF CONSULT: 05/11/18 CHIEF COMPLAINT: Right elbow pain. HISTORY OF PRESENT ILLNESS: Mr. 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 He injured his right elbow with possible open abrasion approximately 1 week ago. He started to develop erythema and swelling over the posterior aspect of his elbow near the olecranon bursa. He initially presented to urgent care, was given Bactrim and discharged. He then presented back to [facility] ED on 05/08/18 with undocumented fevers, chills, increasing erythema, and pain despite the p.o. antibiotic. The patient reports his pain was initially 6/10 and is resolving after his admission. He has been on IV antibiotics and there was culture growth positive for MRSA. The patient has been on IV antibiotics and does feel that the erythema around his elbow has improved. I am consulted by Dr. Mnedosa due to the possibility of an infected bursa with fluid collection. Of note, there are plain x-rays and CT from 05/08/18 showing no obvious fluid collection and indicating cellulitis. PAST MEDICAL HISTORY: None. PAST SURGICAL HISTORY: Front teeth implants. HOME MEDICATIONS: Bactrim DS 1 tablet orally p.o. b.i.d. ALLERGIES: PENICILLIN. FAMILY HISTORY: Negative. SOCIAL HISTORY: The patient lives with his girlfriend. He denies tobacco, alcohol, or recreational drug use. Right-hand dominant, normally an independent ambulator. REVIEW OF SYSTEMS: Fourteen systems are reviewed with the patient today. Positive for right elbow pain and some drainage. Positive for recent fevers and chills. Negative for chest pain, shortness of breath, nausea, vomiting, headache, or dizziness. Otherwise, the patient reports review of systems is negative or not relevant. PHYSICAL EXAM: Vitals: Temperature 98.2, heart rate 56, blood pressure 115/ 65. General: The patient is a thin, well-nourished male who appears his stated age. Alert and oriented x3. Pleasant mood and appropriate affect. Gait: Not assessed. HEENT: Atraumatic, normocephalic. Pupils are equal and reactive to light. Chest: Unlabored breathing. Right upper extremity: The patient's skin has a 0.25 cm open wound directly over the olecranon bursa, which is mild to moderately enlarged. There is some erythema around the bursa but no surrounding cellulitis. The patient can extend the elbow near to full extension with 140 degrees of flexion. No pain with range of motion of the elbow. No obvious effusion at the elbow. There is serosanguineous purulence coming from the open wound. Small amount of palpable fluid collection directly under the open wound. Distally, he has 2+ palpable radial pulse. Full sensation to light touch in all nerve distributions and he demonstrates thumbs-up, okay, and cross finger sign. RADIOGRAPHS: Multiple plain films are reviewed as well as CT scan from 05/08/18 , which showed no visible fluid collections, no fracture/dislocation at the bone , no obvious bone changes. Both plain films and CT indicated cellulitis or superficial edema. LABORATORY STUDIES: From 05/08/18 and 05/09/18 show white cells right around 12 with a ESR of 21, CRP of 31. Sodium 139, potassium 4.1, BUN and creatinine 13 and 1.02, lactic acid 0.7. Hematocrit 40, platelets 245, no left shift of neutrophils. ASSESSMENT AND PLAN: Mr. Márquez is a 27-year-old right-hand dominant male who was admitted 05/08/18 with cellulitis and an infected left olecranon bursa. Today at the bedside, the patient's infected bursa has an open wound. I have milked the wound and approximately 3 to 5 cc of serosanguineous purulence is expressed. I continued milking the wound until there was no further expression of fluid. There was no palpable fluid collection after this. There is no surrounding cellulitis and I feel that the patient's wound has opened on its own for drainage. A dry sterile dressing is placed over the bursa. The patient and I discussed that at this point the wound has drained on its own. I do not think he needs any surgical intervention. I would recommend keeping the patient for another 24 to 48 hours for IV vancomycin because the infecting organism is methicillin-resistant Staphylococcus aureus. I feel within 24 to 48 hours he will have significant improvement in this bursal region. He has no evidence of elbow infection at this point. He has essentially been afebrile over the last 24 hours. White blood cells remain right about 12. The patient understands my recommendation. He can have a normal diet. I will recheck him tomorrow. If he is discharged, he can follow up with me within the next 3 to 5 days in clinic. Thank you for this orthopedic consultation. [id number]/[facility] #: [id number]
--- NOTE | 2018-05-12 03:28 | DS ---
CC: Dr. Mcgee * DISCHARGE SUMMARY: DATE OF ADMISSION: 05/08/18. DATE OF DISCHARGE: 05/11/18. PRIMARY CARE PROVIDER: None. PRINCIPAL DIAGNOSIS: Right elbow cellulitis and septic bursitis secondary to MRSA. DISCHARGE MEDICATIONS: 1. Bactrim DS one tab p.o. daily x21 days. 2. Oxycodone 5 to 10 mg p.o. q. 4 hours p.r.n. pain. HOSPITAL COURSE: Mr. Márquez is a 27-year-old male who presents to the emergency room on 05/08/18 with complaints of right elbow pain, redness and swelling. He , prior to the emergency room visit, had bumped his elbow on a shelf at work. He was seen at Urgent Care on 05/07/18 for swelling, redness and pain of the right elbow. At that time, he was started on Bactrim DS. There was a small area overlying the olecranon bursa that was able to be expressed. Culture from this grew MRSA. On 05/08/18, the patient represented to the emergency room for evaluation due to persistent/worsening symptoms. The patient was admitted and started on vancomycin. He was noted to have a mildly elevated white blood cell count of 12,000 on admission. His ESR was mildly elevated at 21 and a CRP at 31.5. The patient did have fevers, up until 05/09/18. He had a low-grade temperature of 100.3 on the night prior to discharge. By 05/10/18, the patient was noted to have a focal area of fluctuance overlying the right olecranon. Orthopedics consult was requested. Dr. Byrd saw the patient on the morning of 05/11/18, at which time she expressed 3 to 5 cc of purulence from the olecranon bursa. The patient has noted some improvement in pain and range of motion following this. An ID consultation was subsequently requested. As the patient had already had three days of IV vancomycin, it was felt that he could go home on Bactrim DS one tab p.o. twice daily x21 days. The patient already has a prescription for Bactrim 10 days at home. An additional 11 days has been sent to [facility]. Additionally[facility]. Of note, the patient did have an IV on the left antecubital fossa. On 05/10/18 , it was noted that there was moderate erythema and pain overlying the medial aspect of the left antecubital fossa. The IV was subsequently removed. He continues to have some minimal erythema, but it is quite tender and swollen. Dr. Mcgee has recommended warm compresses and ibuprofen for pain to manage that area of likely phlebitis. FOLLOWUP CONCERNS: The patient is being discharged to home today 05/11/18. ACTIVITY LEVEL: As tolerated. DIET: Regular. CONDITION AT DISCHARGE: Stable. The patient will be contacted by Dr. Mcgee's office with an appointment date and time. TIME SPENT: Thirty-five minutes was spent discharging this patient. [id number]/[facility] #: [id number] MTDD
== END 2018-05-11 10:45 | disposition home or self-care (01) | DRG 603 ==
LOC: ED 09:40 → MED 13:14 → OBSVTOIN 05-10 16:04
PROVIDERS: ADMIT Internal Medicine; ATTEND Hospitalist
DX: L03.113 Cellulitis of right upper limb (principal); T80.1XXA Vascular complications following infusion, transfusion and therapeutic injection, initial encounter; B95.62 Methicillin resistant Staphylococcus aureus infection as the cause of diseases classified elsewhere; I80.8 Phlebitis and thrombophlebitis of other sites; Z88.0 Allergy status to penicillin
CPT/HCPCS: 36415; 80053; 80202; 82565; 83605; 84520; 85025; 85610; 85652; 85730; 86140; 87040; 99283; A9270-GY; G0378; J3370; Q9967